=== PATIENT | female | born 1955 | race African-American/Black ===

== ENCOUNTER → 2021-01-04 | Day surgery (SDC) | payer MEDICARE ==
[~2021-01-04] MED LIST: ATORVASTATIN CA20 MG PO; EPINEPHRINE HCL 1:1000 1ML 1 MG/ML AMP ONE; LEVOTHYROXINE50 MCG PO; LIDOCAINE 1% W/EPINEPHRINE 20 ML VIAL ONE; PROPRANOLOL HCL10 MG PO; TRIAMTERENE-HCTZ1 EA PO
[2021-01-04 10:30] VITALS: BP 135/88
== END | disposition home or self-care (01) ==
LOC: OR 07:05
PROVIDERS: ATTEND Otolaryngology Otolaryngology/Facial Plastic Surgery
DX: J34.2 Deviated nasal septum (principal); J34.89 Other specified disorders of nose and nasal sinuses; J34.3 Hypertrophy of nasal turbinates; I10 Essential (primary) hypertension; R00.1 Bradycardia, unspecified; E03.9 Hypothyroidism, unspecified; K21.9 Gastro-esophageal reflux disease without esophagitis; Z88.8 Allergy status to other drugs, medicaments and biological substances; Z20.822 Contact with and (suspected) exposure to COVID-19
CPT/HCPCS: 30520; 71046; 88300; 93005; J0171; U0002